=== PATIENT | male | born 1980 | race Hispanic/Latino ===

== ENCOUNTER 2019-09-12 19:21 | Emergency (ER) | payer OTHER ==
[~2019-09-12] VITALS: Ht 167.6 cm; Wt 68.0 kg
[2019-09-12] MEDS ORDERED: PREDNISONE10 MG PO (20:23)
[2019-09-12 20:30] VITALS: BP 159/77
== END 2019-09-12 20:30 | disposition home or self-care (01) | DRG 563 ==
LOC: ED 19:21
DX: S86.911A Strain of unspecified muscle(s) and tendon(s) at lower leg level, right leg, initial encounter (principal); X50.0XXA Overexertion from strenuous movement or load, initial encounter; Y93.89 Activity, other specified; Y92.89 Other specified places as the place of occurrence of the external cause; Y99.0 Civilian activity done for income or pay